=== PATIENT | female | born 1965 | race Caucasian/White ===

== ENCOUNTER 2019-02-14 13:37 | Emergency (ER) | payer MEDICAID, OTHER ==
[2019-02-14] MEDS ORDERED: Sodium Chloride 0.9% 10 ML Syringe FLUSH PRN (13:57)
[2019-02-14] MEDS: Sodium Chloride 0.9% 1,000 ML IV ONE (14:16)
[2019-02-14] MEDS: Morphine 4 MG/ML Syringe IVPUSH ONE (14:16)
[2019-02-14] MEDS: Ondansetron 4 MG/2 ML SDV IVPUSH ONE (14:21)
[2019-02-14 14:46] LABS: ANION GAP 13.6 mmol/L (10-20)
[2019-02-14] MEDS: Iopamidol 612 MG/ML 100 ML Bottle IVPUSH ONE (14:56)
--- NOTE | 2019-02-14 15:38 | CT ---
[id number] CT/CT Abdomen Pelvis W IV EXAM: CT Abdomen Pelvis W IV CLINICAL DATA: ABDOMINAL PAIN. COMPARISON STUDY: None. FINDINGS: Lung bases are clear. Liver, spleen, gallbladder, pancreas, an adrenal glands are unremarkable. Punctate right nonobstructing calculi. No urinary tract obstruction. Scattered colonic diverticula. No diverticulitis. No colitis. No small bowel obstruction or inflammation.Appendix is normal. No lymphadenopathy, free fluid, or pneumoperitoneum. Uterus and adnexa are unremarkable. Urinary bladder is also unremarkable. Posterior decompression at L5-S1. Discectomy with spacer placement L4-5 and L5-S1. Moderate to advanced spondylosis at L3-4. IMPRESSION: No acute findings in the abdomen or pelvis. Blayne Lamb MD 02/14/19 0484 Thank you for allowing us to participate in the care of your patient.
--- NOTE | 2019-02-15 09:53 | EDM.PDOC ---
ED HPI GENERAL MEDICAL PROBLEM - General Chief Complaint: Back Pain or Injury Stated Complaint: LEFT LOWER BACK PAIN Time Seen by Provider: 02/14/19 13:50 Source of Information: Reports: Patient History Limitations: Reports: No Limitations - History of Present Illness INITIAL COMMENTS - FREE TEXT/NARRATIVE: Pt. presents to ER with complaints of back and abdominal pain. Pt. has a history of chronic low back pain and states that it has gotten worse recently. She states that she is now having what appears to be referred pain into her abdomen as well, similar to muscle spasms. Unsure if this is purely a result of chronic low back pain or if this is being caused by something else. She states that the discomfort in her back radiates into her buttocks as well. She states that she had "dark stools' recently as well. She states that she utilizes NSAIDs heavily. Denies any fever or chill. No saddle anesthesia. No chest pain or shortness of breath. No blood in urine or stools. Denies any lightheadedness. Location: Reports: Abdomen, Back Left Lower Back Pain Score (Numeric/FACES): 4 - Related Data Allergies Allergy/AdvReac Type Severity Reaction Status Date / Time erythromycin base Allergy Hives Verified 02/14/19 13:59 [From Erythrocin] lisinopril Allergy Cough Verified 02/14/19 13:59 Penicillins Allergy Anaphylactic Verified 02/14/19 13:59 Shock Sulfa (Sulfonamide Allergy Rash Verified 02/14/19 13:59 Antibiotics) seafood Allergy Nausea and Uncoded 02/14/19 13:59 Vomiting Home Meds: Home Meds Acyclovir [Zovirax] 400 mg BID 02/14/19 [History] Amitriptyline [Elavil] 75 mg BEDTIME 02/14/19 [History] Ascorbic Acid [Vitamin C] 1 tab DAILY 02/14/19 [History] Cetirizine [ZyrTEC] 10 mg DAILY 02/14/19 [History] Gabapentin [Neurontin] 300 mg TID 02/14/19 [History] Multivitamin [Multi-Vitamin Daily] 1 tab DAILY 02/14/19 [History] Telmisartan 40 mg DAILY 02/14/19 [History] Triamcinolone Acetonide [Triamcinolone Acetonide 0.1% Crm] 1 applic BID [History] predniSONE [Prednisone] 10 mg DAILY 02/14/19 [History] Past Medical History Cardiovascular History: Reports: Hypertension Respiratory History: Reports: Asthma, Other (See Below) Other Respiratory History: pulmonary nodules Gastrointestinal History: Reports: Other (See Below) Other Gastrointestinal History: fatty liver disease. 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 SI joint injection Social & Family History - Tobacco Use Smoking Status *Q: Unknown Ever Smoked - Recreational Drug Use Recreational Drug Use: No ED ROS GENERAL - Review of Systems Review Of Systems: See Below Constitutional: Reports: No Symptoms HEENT: Reports: No Symptoms Respiratory: Reports: No Symptoms Cardiovascular: Reports: No Symptoms Endocrine: Reports: No Symptoms GI/Abdominal: Reports: Abdominal Pain (primarliy to the L side), Black Stool : Reports: No Symptoms Musculoskeletal: Reports: Back Pain Skin: Reports: No Symptoms Neurological: Reports: No Symptoms Psychiatric: Reports: No Symptoms Hematologic/Lymphatic: Reports: No Symptoms Immunologic: Reports: No Symptoms ED EXAM, GENERAL - Physical Exam Exam: See Below Exam Limited By: No Limitations General Appearance: Alert, WD/WN, No Apparent Distress Head: Atraumatic, Normocephalic Neck: Normal Inspection, Supple, Non-Tender, Full Range of Motion Respiratory/Chest: No Respiratory Distress, Lungs Clear, Normal Breath Sounds, No Accessory Muscle Use, Chest Non-Tender Cardiovascular: Normal Peripheral Pulses, Regular Rate, Rhythm, No Edema GI/Abdominal: Normal Bowel Sounds, Soft, No Organomegaly, No Distention, Tender (Female) Exam: Deferred Rectal (Female) Exam: Deferred Back Exam: Normal Inspection, Full Range of Motion Extremities: Normal Inspection, Normal Range of Motion, Non-Tender, No Pedal Edema, Normal Capillary Refill Neurological: Alert, Oriented, CN II-XII Intact, Normal Cognition, Normal Gait, Normal Reflexes, No Motor/Sensory Deficits Skin Exam: Warm, Dry, Intact, Normal Color, No Rash Lymphatic: No Adenopathy Course - Vital Signs Last Recorded V/S: Last Vital Signs Temp 36.6 C 02/14/19 13:37 Pulse 86 02/14/19 13:37 Resp 18 02/14/19 13:37 BP 133/74 02/14/19 13:37 Pulse Ox 98 02/14/19 13:37 - Orders/Labs/Meds Orders: Active Orders 24 hr Category Date Time Status FOLATE [REF] Stat Lab 02/14/19 15:48 Received VITAMIN B12 [REF] Stat Lab 02/14/19 14:07 Received Peripheral IV Insertion Adult [OM.PC] Routine Oth 02/14/19 13:58 Ordered Labs: Laboratory Tests 02/14/19 02/14/19 02/14/19 Range/Units 13:50 14:07 14:07 WBC 10.4 H (4.0-10.0) x10^3/uL RBC 3.35 L (4.00-5.50) x10^6/uL Hgb 9.5 L (12.0-16.0) g/dL Hct 29.9 L (33.0-47.0) % MCV 89.3 (78.0-93.0) fL MCH 28.4 (26.0-32.0) pg MCHC 31.8 L (32.0-36.0) g/dL RDW Coeff of Andrew 15.4 H (10.0-15.0) % Plt Count 277 (130-400) x10^3/uL Neut % (Auto) 46.3 L (50.0-80.0) % Lymph % (Auto) 44.7 (25.0-50.0) % [place]once % (Auto) 5.5 (2.0-11.0) % Eos % (Auto) 3.3 (0.0-4.0) % Baso % (Auto) 0.2 (0.2-1.2) % PT 9.4 L (9.6-11.4) SEC INR 0.9 L (2.0-3.5) Sodium (136-145) mmol/L Potassium (3.5-5.1) mmol/L Chloride (98-107) mmol/L Carbon Dioxide (21-32) mmol/L Anion Gap (10-20) mmol/L BUN (7-18) mg/dL Creatinine (0.55-1.02) mg/dL Est Cr Clr Drug Dosing mL/min Estimated GFR (MDRD) Glucose (74-106) mg/dL Calcium (8.5-10.1) mg/dL Corrected Calcium (8.5-10.1) mg/dL Phosphorus (2.6-4.7) mg/dL Magnesium (1.8-2.4) mg/dL Iron (50-170) ug/dL TIBC (250-450) ug/dL % Saturation (20.0-50.0) % Ferritin (8-252) ng/mL Total Bilirubin (0.2-1.0) mg/dL AST (15-37) U/L ALT (14-59) U/L Alkaline Phosphatase (46-116) U/L C-Reactive Protein (<=0.9) mg/dL Total Protein (6.4-8.2) g/dL Albumin (3.4-5.0) g/dL Globulin Albumin/Globulin Ratio Urine Color Yellow (YELLOW) Urine Appearance Clear (CLEAR) Urine pH 6.0 (5.0-8.0) Ur Specific [place] 1.015 Urine Protein Negative (NEGATIVE) mg/dL Urine Glucose (UA) Negative (NEGATIVE) mg/dL Urine Ketones Negative (NEGATIVE) mg/dL Urine Occult Blood Negative (NEGATIVE) Urine Nitrite Negative (NEGATIVE) Urine Bilirubin Negative (NEGATIVE) Urine Urobilinogen 0.2 (0.2) EU/dL Ur Leukocyte Esterase Negative (NEGATIVE) Urine RBC 0-5 (NOT SEEN) /HPF Urine WBC 0-5 (NOT SEEN) /HPF Ur Squamous Epith Cells Rare (NEGATIVE) /HPF Amorphous Sediment Rare Urine Bacteria Rare (NEGATIVE) /HPF Urine Mucus Rare H (NEGATIVE) /LPF Stool Occult Blood (NEGATIVE) 02/14/19 02/14/19 02/14/19 Range/Units 14:07 14:07 14:40 WBC (4.0-10.0) x10^3/uL RBC (4.00-5.50) x10^6/uL Hgb (12.0-16.0) g/dL Hct (33.0-47.0) % MCV (78.0-93.0) fL MCH (26.0-32.0) pg MCHC (32.0-36.0) g/dL RDW Coeff of Andrew (10.0-15.0) % Plt Count (130-400) x10^3/uL Neut % (Auto) (50.0-80.0) % Lymph % (Auto) (25.0-50.0) % [place]once % (Auto) (2.0-11.0) % Eos % (Auto) (0.0-4.0) % Baso % (Auto) (0.2-1.2) % PT (9.6-11.4) SEC INR (2.0-3.5) Sodium 143 (136-145) mmol/L Potassium 3.6 (3.5-5.1) mmol/L Chloride 104 (98-107) mmol/L Carbon Dioxide 29 (21-32) mmol/L Anion Gap 13.6 (10-20) mmol/L BUN 21 H (7-18) mg/dL Creatinine 1.0 (0.55-1.02) mg/dL Est Cr Clr Drug Dosing 59.51 mL/min Estimated GFR (MDRD) 58 Glucose 115 H (74-106) mg/dL Calcium 9.1 (8.5-10.1) mg/dL Corrected Calcium 9.66 (8.5-10.1) mg/dL Phosphorus 3.9 (2.6-4.7) mg/dL Magnesium 2.3 (1.8-2.4) mg/dL Iron 41 L (50-170) ug/dL TIBC 301 (250-450) ug/dL % Saturation 13.6 L (20.0-50.0) % Ferritin 49 (8-252) ng/mL Total Bilirubin 0.5 (0.2-1.0) mg/dL AST 35 (15-37) U/L ALT 60 H (14-59) U/L Alkaline Phosphatase 76 (46-116) U/L C-Reactive Protein 0.6 (<=0.9) mg/dL Total Protein 6.3 L (6.4-8.2) g/dL Albumin 3.3 L (3.4-5.0) g/dL Globulin 3.0 Albumin/Globulin Ratio 1.10 Urine Color (YELLOW) Urine Appearance (CLEAR) Urine pH (5.0-8.0) Ur Specific [place] Urine Protein (NEGATIVE) mg/dL Urine Glucose (UA) (NEGATIVE) mg/dL Urine Ketones (NEGATIVE) mg/dL Urine Occult Blood (NEGATIVE) Urine Nitrite (NEGATIVE) Urine Bilirubin (NEGATIVE) Urine Urobilinogen (0.2) EU/dL Ur Leukocyte Esterase (NEGATIVE) Urine RBC (NOT SEEN) /HPF Urine WBC (NOT SEEN) /HPF Ur Squamous Epith Cells (NEGATIVE) /HPF Amorphous Sediment Urine Bacteria (NEGATIVE) /HPF Urine Mucus (NEGATIVE) /LPF Stool Occult Blood Negative (NEGATIVE) Meds: Medications Discontinued Medications Generic Name Dose Route Start Last Admin Trade Name Freq PRN Reason Stop Dose Admin Sodium Chloride 1,000 mls @ 1,000 mls/hr 02/14/19 14:00 02/14/19 14:16 Normal Saline IV 02/14/19 14:59 1,000 mls/hr .BOLUS ONE Administration Iopamidol 100 ml 02/14/19 14:47 02/14/19 14:56 Isovue-300 (61%) IVPUSH 02/14/19 14:48 100 ml ONETIME ONE Administration Morphine Sulfate 4 mg 02/14/19 14:00 02/14/19 14:16 Morphine IVPUSH 02/14/19 14:01 4 mg ONETIME ONE Administration Ondansetron HCl 4 mg 02/14/19 14:00 02/14/19 14:21 Zofran IVPUSH 02/14/19 14:01 4 mg ONETIME ONE Administration Sodium Chloride 10 ml 02/14/19 13:57 Saline Flush FLUSH ASDIRECTED PRN Keep Vein Open - Radiology Interpretation Free Text/Narrative:: CT abdomen and pelvis were negative for acute pathology - Re-Assessments/Exams Free Text/Narrative Re-Assessment/Exam: Pt. was given 4mg Morphine IV. She reported almost complete resolution of her discomfort. Stool occult blood test was negative. Departure - Departure Time of Disposition: 07:05 Disposition: Home, Self-Care 01 Clinical Impression: Anemia, Acute exacerbation of chronic low back pain - Discharge Information Instructions: Acetaminophen; Hydrocodone tablets or capsules, Anemia, Chronic Back Pain Referrals: Mat Brown NP [Primary Care Provider] - Forms: ED Department Discharge Additional Instructions: [place] 5/325mg 1 every 4-6 hour as needed for pain Iron Sulfate 150mg 1 twice daily Some of your anemia tests are sent out to lab but will be available when you follow-up with Mat. - My Orders Last 24 Hours: My Active Orders 02/14/19 13:58 Peripheral IV Insertion Adult [OM.PC] Routine 02/14/19 14:07 VITAMIN B12 [REF] Stat 02/14/19 15:48 FOLATE [REF] Stat - Assessment/Plan Last 24 Hours: My Active Orders 02/14/19 13:58 Peripheral IV Insertion Adult [OM.PC] Routine 02/14/19 14:07 VITAMIN B12 [REF] Stat 02/14/19 15:48 FOLATE [REF] Stat Plan: [place] 5/325mg 1 every 4-6 hour as needed for pain Iron Sulfate 150mg 1 twice daily Some of your anemia tests are sent out to lab but will be available when you follow-up with Mat.
== END 2019-02-14 17:05 | disposition home or self-care (01) ==
LOC: VM.ED 13:37
DX: M54.5 Low back pain (principal); G89.29 Other chronic pain; I12.9 Hypertensive chronic kidney disease with stage 1 through stage 4 chronic kidney disease, or unspecified chronic kidney disease; N18.3 Chronic kidney disease, stage 3 (moderate); D63.1 Anemia in chronic kidney disease; J45.909 Unspecified asthma, uncomplicated; Z79.899 Other long term (current) drug therapy; Z88.2 Allergy status to sulfonamides; Z91.013 Allergy to seafood; Z88.0 Allergy status to penicillin; Z88.1 Allergy status to other antibiotic agents; Z88.8 Allergy status to other drugs, medicaments and biological substances
CPT/HCPCS: 36415; 74177; 80053; 81001; 82274; 82607; 82728; 82746; 83540; 83550; 83735; 84100; 85025; 85610; 86140; 96361; 96374; 96375; 99284-25; J2270; J2405; J7030; Q9967

== ENCOUNTER 2019-02-27 09:26 | Observation (INO) | payer MEDICAID ==
[2019-02-27] MEDS ORDERED: diazePAM 5 MG/ML MDV IVPUSH ONE (09:29)
[2019-02-27] MEDS ORDERED: Ketorolac 15 MG/ML SDV IVPUSH ONE (10:28)
[2019-02-27] MEDS ORDERED: Morphine 4 MG/ML Syringe IVPUSH ONE ×2 (10:28→14:12)
[2019-02-27 12:33] LABS: CHLORIDE,CL 102 mmol/L (98-107); SODIUM,NA 138 mmol/L (136-145)
[2019-02-27 12:37] LABS: ANION GAP 13.5 mmol/L (10-20)
[2019-02-27] MEDS: Acetaminophen/HYDROcodone 325-10 MG Tab PO PRN ×3 (13:18→21:37)
--- NOTE | 2019-02-27 13:18 | EDM.PDOC ---
ED HPI GENERAL MEDICAL PROBLEM - General Chief Complaint: Back Pain or Injury Stated Complaint: BACK PAIN Time Seen by Provider: 02/27/19 09:28 Source of Information: Reports: Patient History Limitations: Reports: No Limitations - History of Present Illness INITIAL COMMENTS - FREE TEXT/NARRATIVE: Pt. presents to ER with complaints of low back pain with radiation into L lower abdomen. She was seen in ER for the same symptoms on 02/14/19. At that time her workup included at abdomen and pelvis with contast which did not reveal any acute pathology. Pt. has a longstanding history of low back pain and has had a lumbar fusion. She is currently seeing pain management and has had a recent SI joint injection. Pt. states that she has been doing well recently. States that she was feeling well yesterday. When she woke up this AM she has having significant increase in back pain with radiation into her L side and into her abdomen. She was unable to get out of bed and called 911. Pt. was given dilaudid and zofran by EMS but states that this did little for the discomfort. Denies any recent trauma. No falls or lifting. Denies any fever or chills. States that she has not had any issues with incontinence, saddle anesthesia, or other signs of cauda equina. Onset: Today Onset Date: 02/27/19 Location: Reports: Back Quality: Reports: Sharp Severity: Severe Improves with: Reports: Rest Worsens with: Reports: Movement Left Flank Pain Score (Numeric/FACES): 10 - Related Data Allergies Allergy/AdvReac Type Severity Reaction Status Date / Time Penicillins Allergy Severe Anaphylactic Verified 02/27/19 12:38 Shock erythromycin base Allergy Intermediate Hives Verified 02/27/19 12:38 [From Erythrocin] Sulfa (Sulfonamide Allergy Intermediate Rash Verified 02/27/19 12:38 Antibiotics) lisinopril AdvReac Cough Verified 02/27/19 12:38 seafood AdvReac Nausea and Uncoded 02/27/19 12:38 Vomiting Home Meds: Home Meds Acyclovir [Zovirax] 400 mg PO BID 02/14/19 [History] Amitriptyline [Elavil] 75 mg PO BEDTIME 02/14/19 [History] Ascorbic Acid [Vitamin C] 1 tab PO DAILY 02/14/19 [History] Cetirizine [ZyrTEC] 10 mg PO DAILY 02/14/19 [History] Gabapentin [Neurontin] 300 mg PO TID 02/14/19 [History] Multivitamin [Multi-Vitamin Daily] 1 tab PO DAILY 02/14/19 [History] Telmisartan 40 mg PO DAILY 02/14/19 [History] Triamcinolone Acetonide [Triamcinolone Acetonide 0.1% Crm] 1 applic TOP BID [History] predniSONE [Prednisone] 10 mg PO DAILY 02/14/19 [History] Past Medical History Cardiovascular History: Reports: Hypertension Respiratory History: Reports: Asthma, Other (See Below) Other Respiratory History: pulmonary nodules Gastrointestinal History: Reports: Other (See Below) Other Gastrointestinal History: fatty liver disease. 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 SI joint injection Social & Family History - Tobacco Use Smoking Status *Q: Never Smoker ED ROS GENERAL - Review of Systems Review Of Systems: See Below Constitutional: Reports: No Symptoms HEENT: Reports: No Symptoms Respiratory: Reports: No Symptoms Cardiovascular: Reports: No Symptoms Endocrine: Reports: No Symptoms GI/Abdominal: Reports: Abdominal Pain : Reports: No Symptoms. Denies: Discharge, Dysuria Musculoskeletal: Reports: Back Pain Skin: Reports: No Symptoms Neurological: Reports: No Symptoms, Other (No paresthesia. No saddle anesthesia or incontinence.) Psychiatric: Reports: No Symptoms Hematologic/Lymphatic: Reports: No Symptoms Immunologic: Reports: No Symptoms ED EXAM, GENERAL - Physical Exam Exam: See Below Exam Limited By: No Limitations General Appearance: Alert, WD/WN, No Apparent Distress Respiratory/Chest: No Respiratory Distress, Lungs Clear, Normal Breath Sounds, No Accessory Muscle Use, Chest Non-Tender Cardiovascular: Normal Peripheral Pulses, Regular Rate, Rhythm, No Edema, No Gallop, No JVD, No Murmur Peripheral Pulses: 4+: Radial (R), Popliteal (L), Popliteal (R), Dorsalis Pedis (L), Dorsalis Pedis (R) GI/Abdominal: Normal Bowel Sounds, Soft, No Organomegaly, No Distention, Tender (pain is palliated with palpation/when pressure is placed in L side of abdomen. Muscle spasm noted to L spine and into abdomen.) (Female) Exam: Deferred Rectal (Female) Exam: Deferred Back Exam: Normal Inspection, Decreased Range of Motion, Muscle Spasm Extremities: Normal Inspection, Normal Range of Motion, Non-Tender, No Pedal Edema, Normal Capillary Refill Neurological: Alert, Oriented, CN II-XII Intact, Normal Cognition, Normal Gait, Normal Reflexes (2+), No Motor/Sensory Deficits Psychiatric: Normal Affect, Normal Mood Skin Exam: Warm, Dry, Intact, Normal Color, No Rash Lymphatic: No Adenopathy Course - Vital Signs Last Recorded V/S: Last Vital Signs Temp 36.3 C 02/27/19 15:01 Pulse 75 02/27/19 15:01 Resp 16 02/27/19 12:43 BP 156/83 H 02/27/19 15:01 Pulse Ox 96 02/27/19 15:01 - Orders/Labs/Meds Orders: Active Orders 24 hr Category Date Time Status UA W/MICROSCOPIC [URIN] Stat Lab 02/27/19 11:47 Ordered Medication Orders Hydrocodone Bitart/Acetaminophen ([place] 325-10 Mg) 1 tab PO Q4H PRN PRN Reason: Pain Last Admin: 02/27/19 13:18 Dose: 1 tab Amitriptyline HCl (Elavil) 75 mg PO BEDTIME KATERINA Cyclobenzaprine HCl (Flexeril) 10 mg PO TID KATERINA Last Admin: 02/27/19 13:28 Dose: 10 mg Gabapentin (Neurontin) 300 mg PO TID KATERINA Non-Formulary Medication (Acyclovir [Zovirax]) 400 mg PO BID KATERINA Non-Formulary Medication (Ascorbic Acid [Vitamin C]) 1 tab PO DAILY KATERINA Non-Formulary Medication (Cetirizine [Zyrtec]) 10 mg PO DAILY KATERINA Non-Formulary Medication (Multivitamin [Multi-Vitamin Daily]) 1 tab PO DAILY KATERINA Non-Formulary Medication (Telmisartan) 40 mg PO DAILY KATERINA Prednisone (Prednisone) 40 mg PO WITHBREAKFAST [facility] Meds: Medications Generic Name Dose Route Start Last Admin Trade Name Freq PRN Reason Stop Dose Admin Hydrocodone Bitart/Acetaminophen 1 tab 02/27/19 12:41 02/27/19 13:18 [place] 325-10 Mg PO 1 tab Q4H PRN Administration Pain Amitriptyline HCl 75 mg 02/27/19 20:00 Elavil PO BEDTIME KATERINA Cyclobenzaprine HCl 10 mg 02/27/19 13:30 02/27/19 13:28 Flexeril PO 10 mg TID KATERINA Administration Gabapentin 300 mg 02/27/19 20:00 Neurontin PO TID KATERINA Non-Formulary Medication 400 mg 02/27/19 20:00 Acyclovir [Zovirax] PO BID [facility] Non-Formulary Medication 1 tab 02/28/19 08:00 Ascorbic Acid [Vitamin C] PO DAILY KATERINA Non-Formulary Medication 10 mg 02/28/19 08:00 Cetirizine [Zyrtec] PO DAILY [facility] Non-Formulary Medication 1 tab 02/28/19 08:00 Multivitamin [Multi-Vitamin Daily] PO DAILY [facility] Non-Formulary Medication 40 mg 02/28/19 08:00 Telmisartan PO DAILY [facility] Prednisone 40 mg 02/28/19 08:00 Prednisone PO WITHBREAKFAST KATERINA Discontinued Medications Generic Name Dose Route Start Last Admin Trade Name Balq PRN Reason Stop Dose Admin Diazepam 5 mg 02/27/19 09:29 02/27/19 09:36 Valium IVPUSH 02/27/19 09:30 5 mg STAT ONE Administration Iopamidol 100 ml 02/27/19 14:26 Isovue-300 (61%) IVPUSH 02/27/19 14:27 ONETIME ONE Ketorolac Tromethamine 15 mg 02/27/19 10:28 02/27/19 10:40 Toradol IVPUSH 02/27/19 10:29 15 mg ONETIME ONE Administration Morphine Sulfate 4 mg 02/27/19 10:28 02/27/19 10:38 Morphine IVPUSH 02/27/19 10:29 4 mg ONETIME ONE Administration Morphine Sulfate 4 mg 02/27/19 14:12 02/27/19 14:23 Morphine IVPUSH 02/27/19 14:13 4 mg ONETIME ONE Administration - Radiology Interpretation Free Text/Narrative:: CT abdomen and pelvis was obtained and is pending Departure - Departure Time of Disposition: 15:00 Disposition: Refer to Observation Clinical Impression: Low back pain associated with a spinal disorder other than radiculopathy or spinal stenosis, Acute exacerbation of chronic low back pain - Discharge Information - Problem List Review Problem List Initiated/Reviewed/Updated: Yes - My Orders Last 24 Hours: My Active Orders 02/27/19 11:47 UA W/MICROSCOPIC [URIN] Stat - Assessment/Plan Last 24 Hours: My Active Orders 02/27/19 11:47 UA W/MICROSCOPIC [URIN] Stat Plan: Pt. was given morphine and valium in ER and reported no improvement in discomfort. She reports that the severity waxes and wanes but is constantly there. Unable to get her pain under control at this point so she will be admitted for pain control. Tramadol was stopped. She was started on [place] 10/ 325mg 1 every 4 hours as needed for pain. Flexeril for spasm. Pt. became very somnolent with parenteral opiates so at this point we will treat the discomfort with oral medication. I did speak with her sister. She is very worried about her outlook and mental health and thinks she is having a "nervous breakdown". We will have her work with PT and OT once her pain is better controlled. She needs to ambulate and should not be lying flat in bed which she has been wanting to do. She is a code 1.
[2019-02-27] MEDS: Cyclobenzaprine 10 MG Tab PO SCH ×2 (13:28→19:24)
[2019-02-27] MEDS ORDERED: Iopamidol 612 MG/ML 100 ML Bottle IVPUSH ONE (14:26)
--- NOTE | 2019-02-27 17:24 | CT ---
[id number] CT/CT Abdomen Pelvis W IV EXAM: CT Abdomen Pelvis W IV CLINICAL DATA: ABDOMINAL/BACK PAIN. COMPARISON STUDY: February 14, 2019. FINDINGS: Dependent atelectasis at the lung bases bilaterally. Generalized hypodensity liver consistent with hepatic steatosis. No suspicious hepatic lesions. The gallbladder, spleen, pancreas, and adrenal glands are unremarkable. Punctate nonobstructing right renal calculi. No hydronephrosis or hydroureter. No suspicious renal lesions. No bowel obstruction or inflammation. The appendix is visualized and appears normal. No lymphadenopathy, free fluid, or pneumoperitoneum. Scattered changes of spondylosis the spine. Postsurgical changes of the lower lumbar spine. No fracture or osseous lesion. IMPRESSION: No acute acute CT findings in the abdomen or pelvis to explain the patient's symptoms. Raphael Vallecillo DO 02/27/19 1723 Thank you for allowing us to participate in the care of your patient.
[2019-02-27] MEDS ORDERED: Morphine 4 MG/ML Syringe IVPUSH PRN (17:39)
[2019-02-27] MEDS: Gabapentin 300 MG Cap PO SCH (19:24)
[2019-02-27] MEDS: Acyclovir 200 MG Cap PO SCH (19:24)
[2019-02-27] MEDS ORDERED: Amitriptyline 25 MG Tab PO SCH (20:00)
[2019-02-28] MEDS: Acetaminophen/HYDROcodone 325-10 MG Tab PO PRN ×3 (04:11→13:08)
[2019-02-28] MEDS ORDERED: Losartan 50 MG Tab PO SCH (08:00)
[2019-02-28] MEDS ORDERED: predniSONE 20 MG Tab PO SCH (08:00)
[2019-02-28] MEDS ORDERED: Loratadine 10 MG Tab PO SCH (08:00)
[2019-02-28] MEDS ORDERED: Multivitamins with Iron/Calcium/Folic Acid/Minerals Tab PO SCH (08:00)
[2019-02-28] MEDS ORDERED: Ascorbic Acid 500 MG Tab PO SCH (08:00)
[2019-02-28] MEDS: Gabapentin 300 MG Cap PO SCH ×2 (08:55→13:08)
[2019-02-28] MEDS: Cyclobenzaprine 10 MG Tab PO SCH ×2 (08:56→13:08)
[2019-02-28] MEDS: Acyclovir 200 MG Cap PO SCH (08:56)
--- NOTE | 2019-02-28 10:26 | PCM.DCSUM1 ---
Discharge Summary - Hospital Course HPI Initial Comments: Pt. presented to ER via EMS for complaints of low back pain with radiation into L lower abdomen. She was seen in ER for the same symptoms on 02/14/19. At that time her workup included at abdomen and pelvis with contrast which did not reveal any acute pathology. Pt. has a longstanding history of low back pain and has had a lumbar fusion. She is currently seeing pain management and has had a recent SI joint injection at . Pt. states that she has been doing well recently. States that she was feeling well yesterday. When she woke up this AM she has having significant increase in back pain with radiation into her L side and into her abdomen. She was unable to get out of bed and called 911. Pt. was given dilaudid and zofran by EMS but states that this did little for the discomfort. Denies any recent trauma. No falls or lifting. Denies any fever or chills. States that she has not had any issues with incontinence, saddle anesthesia, or other signs of cauda equina. This appears to be acute on chronic exacerbation of low back pain. Diagnosis: Stroke: No Modified [place] Scale: No Symptoms at All Modified [place] Scale Score: 0 - Discharge Data Discharge Date: 02/28/19 Discharge Disposition: Home, Self-Care 01 Condition: Good - Patient Summary/Data Operative Procedure(s) Performed: None Consults: Consultations 02/27/19 13:19 Consult to Physical Therapy [PT Evaluation and Treatment] [CONS] Routine 02/27/19 13:20 OT Evaluation and Treatment [CONS] Routine Labs Pending at D/C: None Recommended Follow-up Testing/Procedures: None Planned Operative Procedure(s) after DC: None Hospital Course: Patient initially had issues with pain control, but since has gotten much better. She has not had any issue with BM's or urination. Hospital stay basically unremarkable. Patient is now at baseline. No chest pain or SOB. Tolerated diet well. No issues with medications. Ambulating independently. - Patient Instructions Diet, Other: Low Sodium and low potassium; Absolutely NO NSAIDS (Aleve, Ibuprofen, etc.) Activity: Rest and Relax Today Driving: Do Not Drive (for today) Showering/Bathing: May Shower Notify Provider of: Increased Pain - Discharge Plan *PRESCRIPTION DRUG MONITORING PROGRAM REVIEWED*: Not Applicable *COPY OF PRESCRIPTION DRUG MONITORING REPORT IN PATIENT LADONNA: Not Applicable Home Medications: Home Meds Acyclovir [Zovirax] 400 mg PO BID 02/14/19 [History] Amitriptyline [Elavil] 75 mg PO BEDTIME 02/14/19 [History] Ascorbic Acid [Vitamin C] 1 tab PO DAILY 02/14/19 [History] Cetirizine [ZyrTEC] 10 mg PO DAILY 02/14/19 [History] Gabapentin [Neurontin] 300 mg PO TID 02/14/19 [History] Multivitamin [Multi-Vitamin Daily] 1 tab PO DAILY 02/14/19 [History] Telmisartan 40 mg PO DAILY 02/14/19 [History] Triamcinolone Acetonide [Triamcinolone Acetonide 0.1% Crm] 1 applic TOP BID [History] predniSONE [Prednisone] 10 mg PO DAILY 02/14/19 [History] Oxygen Therapy Mode: Room Air Patient Handouts: Chronic Back Pain, Chronic Pain, Adult Referrals: Mat Brown NP [Primary Care Provider] - - Discharge Summary/Plan Comment DC Time >30 min.: No Discharge Summary/Plan Comment: Patient will be discharge home today. No changes with any home medication. Reminded patient no NSAIDS duet o CKD stage 3. Tylenol ok. See me in clinic in one week for hospital follow up. Will consider Physical Therapy. - General Info Date of Service: 02/28/19 Subjective Update: Patient offers no specific complaints. States back pain is much better. Patient does not require physical therapy inpatient. She is at her baseline. Denies any issues with BM's or urination. Tolerating diet OK. Ambulating independently. Denies any numbness, tingling, or paresthesia. Functional Status: Reports: Pain Controlled, Tolerating Diet, Ambulating, Urinating Numeric/FACES Score: 0 - Review of Systems General: Denies: Fever, Chills Pulmonary: Denies: Shortness of Breath, Cough Cardiovascular: Denies: Chest Pain, Palpitations Musculoskeletal: Reports: No Symptoms Skin: Reports: No Symptoms Neurological: Reports: No Symptoms - Patient Data Vitals - Most Recent: Last Vital Signs Temp 36.4 C 02/28/19 06:00 Pulse 88 02/28/19 06:00 Resp 18 02/28/19 06:00 BP 144/76 H 02/28/19 08:56 Pulse Ox 92 L 02/28/19 06:00 Weight - Most Recent: 103.192 kg I&O - Last 24 hours: Intake & Output 02/27/19 02/28/19 02/28/19 22:59 06:59 14:59 Intake Total 200 360 Output Total 700 Balance -700 200 360 Lab Results - Last 24 hrs: Laboratory Results - last 24 hr 02/27/19 02/27/19 02/27/19 Range/Units 12:05 12:05 12:05 WBC 12.5 H (4.0-10.0) x10^3/uL RBC 3.86 L (4.00-5.50) x10^6/uL Hgb 11.3 L D (12.0-16.0) g/dL Hct 34.4 (33.0-47.0) % MCV 89.1 (78.0-93.0) fL MCH 29.3 (26.0-32.0) pg MCHC 32.8 (32.0-36.0) g/dL RDW Coeff of Andrew 15.2 H (10.0-15.0) % Plt Count 349 (130-400) x10^3/uL Neut % (Auto) 80.5 H (50.0-80.0) % Lymph % (Auto) 11.4 L (25.0-50.0) % [place] % (Auto) 7.8 (2.0-11.0) % Eos % (Auto) 0.1 (0.0-4.0) % Baso % (Auto) 0.2 (0.2-1.2) % PT 9.9 L (10.0-12.8) SEC INR 0.9 L (2.0-3.5) Sodium 138 (136-145) mmol/L Potassium 4.5 (3.5-5.1) mmol/L Chloride 102 (98-107) mmol/L Carbon Dioxide 27 (21-32) mmol/L Anion Gap 13.5 (10-20) mmol/L BUN 38 H (7-18) mg/dL Creatinine 1.1 H (0.55-1.02) mg/dL Est Cr Clr Drug Dosing TNP Estimated GFR (MDRD) 52 Glucose 115 H (74-106) mg/dL Calcium 9.7 (8.5-10.1) mg/dL Corrected Calcium 10.02 (8.5-10.1) mg/dL Total Bilirubin 0.7 (0.2-1.0) mg/dL AST 20 (15-37) U/L ALT 57 (14-59) U/L Alkaline Phosphatase 80 (46-116) U/L Total Protein 7.0 (6.4-8.2) g/dL Albumin 3.6 (3.4-5.0) g/dL Globulin 3.4 Albumin/Globulin Ratio 1.06 Urine Color (YELLOW) Urine Appearance (CLEAR) Urine pH (5.0-8.0) Ur Specific [place] Urine Protein (NEGATIVE) mg/dL Urine Glucose (UA) (NEGATIVE) mg/dL Urine Ketones (NEGATIVE) mg/dL Urine Occult Blood (NEGATIVE) Urine Nitrite (NEGATIVE) Urine Bilirubin (NEGATIVE) Urine Urobilinogen (0.2) EU/dL Ur Leukocyte Esterase (NEGATIVE) Urine RBC (NOT SEEN) /HPF Urine WBC (NOT SEEN) /HPF Ur Squamous Epith Cells (NEGATIVE) /HPF Urine Bacteria (NEGATIVE) /HPF Urine Mucus (NEGATIVE) /LPF 02/27/19 Range/Units 16:50 WBC (4.0-10.0) x10^3/uL RBC (4.00-5.50) x10^6/uL Hgb (12.0-16.0) g/dL Hct (33.0-47.0) % MCV (78.0-93.0) fL MCH (26.0-32.0) pg MCHC (32.0-36.0) g/dL RDW Coeff of Andrew (10.0-15.0) % Plt Count (130-400) x10^3/uL Neut % (Auto) (50.0-80.0) % Lymph % (Auto) (25.0-50.0) % [place] % (Auto) (2.0-11.0) % Eos % (Auto) (0.0-4.0) % Baso % (Auto) (0.2-1.2) % PT (10.0-12.8) SEC INR (2.0-3.5) Sodium (136-145) mmol/L Potassium (3.5-5.1) mmol/L Chloride (98-107) mmol/L Carbon Dioxide (21-32) mmol/L Anion Gap (10-20) mmol/L BUN (7-18) mg/dL Creatinine (0.55-1.02) mg/dL Est Cr Clr Drug Dosing Estimated GFR (MDRD) Glucose (74-106) mg/dL Calcium (8.5-10.1) mg/dL Corrected Calcium (8.5-10.1) mg/dL Total Bilirubin (0.2-1.0) mg/dL AST (15-37) U/L ALT (14-59) U/L Alkaline Phosphatase (46-116) U/L Total Protein (6.4-8.2) g/dL Albumin (3.4-5.0) g/dL Globulin Albumin/Globulin Ratio Urine Color Yellow (YELLOW) Urine Appearance Clear (CLEAR) Urine pH 6.0 (5.0-8.0) Ur Specific [place] 1.020 Urine Protein Negative (NEGATIVE) mg/dL Urine Glucose (UA) Negative (NEGATIVE) mg/dL Urine Ketones Negative (NEGATIVE) mg/dL Urine Occult Blood Negative (NEGATIVE) Urine Nitrite Negative (NEGATIVE) Urine Bilirubin Negative (NEGATIVE) Urine Urobilinogen 0.2 (0.2) EU/dL Ur Leukocyte Esterase Negative (NEGATIVE) Urine RBC 0-5 (NOT SEEN) /HPF Urine WBC 0-5 (NOT SEEN) /HPF Ur Squamous Epith Cells Rare (NEGATIVE) /HPF Urine Bacteria Not seen (NEGATIVE) /HPF Urine Mucus Few H (NEGATIVE) /LPF Med Orders - Current: Current Medications Hydrocodone Bitart/Acetaminophen ([place] 325-10 Mg) 1 tab PO Q4H PRN PRN Reason: Pain Last Admin: 02/28/19 08:57 Dose: 1 tab Acyclovir (Zovirax) 400 mg PO BID COUNTS INCLUDE 234 BEDS AT THE [facility] Last Admin: 02/28/19 08:56 Dose: 400 mg Amitriptyline HCl (Elavil) 75 mg PO BEDTIME COUNTS INCLUDE 234 BEDS AT THE [facility] Last Admin: 02/27/19 19:25 Dose: 75 mg Ascorbic Acid (Vitamin C) 500 mg PO DAILY COUNTS INCLUDE 234 BEDS AT THE [facility] Last Admin: 02/28/19 08:55 Dose: 500 mg Cyclobenzaprine HCl (Flexeril) 10 mg PO TID COUNTS INCLUDE 234 BEDS AT THE [facility] Last Admin: 02/28/19 08:56 Dose: 10 mg Gabapentin (Neurontin) 300 mg PO TID COUNTS INCLUDE 234 BEDS AT THE [facility] Last Admin: 02/28/19 08:55 Dose: 300 mg Loratadine (Claritin) 10 mg PO DAILY COUNTS INCLUDE 234 BEDS AT THE [facility] Last Admin: 02/28/19 08:56 Dose: 10 mg Losartan Potassium (Cozaar) 50 mg PO DAILY COUNTS INCLUDE 234 BEDS AT THE [facility] Last Admin: 02/28/19 08:56 Dose: 50 mg Morphine Sulfate (Morphine) 4 mg IVPUSH Q6H PRN PRN Reason: severe pain Last Admin: 02/28/19 05:13 Dose: 4 mg Multivitamins/Minerals (Thera M Plus) 1 tab PO DAILY COUNTS INCLUDE 234 BEDS AT THE [facility] Last Admin: 02/28/19 08:56 Dose: 1 tab Prednisone (Prednisone) 40 mg PO WITHBREAKFAST COUNTS INCLUDE 234 BEDS AT THE [facility] Last Admin: 02/28/19 08:56 Dose: 40 mg Discontinued Medications Diazepam (Valium) 5 mg IVPUSH STAT ONE Stop: 02/27/19 09:30 Last Admin: 02/27/19 09:36 Dose: 5 mg Iopamidol (Isovue-300 (61%)) 100 ml IVPUSH ONETIME ONE Stop: 02/27/19 14:27 Last Admin: 02/27/19 16:54 Dose: 100 ml Ketorolac Tromethamine (Toradol) 15 mg IVPUSH ONETIME ONE Stop: 02/27/19 10:29 Last Admin: 02/27/19 10:40 Dose: 15 mg Morphine Sulfate (Morphine) 4 mg IVPUSH ONETIME ONE Stop: 02/27/19 10:29 Last Admin: 02/27/19 10:38 Dose: 4 mg Morphine Sulfate (Morphine) 4 mg IVPUSH ONETIME ONE Stop: 02/27/19 14:13 Last Admin: 02/27/19 14:23 Dose: 4 mg - Exam Quality Assessment: Denies: Skin Breakdown General: Reports: Alert, Oriented, Cooperative, No Acute Distress Lungs: Reports: Clear to Auscultation, Normal Respiratory Effort Cardiovascular: Reports: Regular Rate, Regular Rhythm Back Exam: Reports: Normal Inspection, Paraspinal Tenderness (very mild, tolerable) Skin: Reports: Warm, Dry, Intact Neurological: Reports: No New Focal Deficit
== END 2019-02-28 13:50 | disposition home or self-care (01) ==
LOC: VM.ED 09:26 → VM.MS 11:50
PROVIDERS: ADMIT Physician Assistant; ATTEND Physician Assistant
DX: G89.29 Other chronic pain (principal); M54.5 Low back pain; R10.30 Lower abdominal pain, unspecified; I12.9 Hypertensive chronic kidney disease with stage 1 through stage 4 chronic kidney disease, or unspecified chronic kidney disease; N18.3 Chronic kidney disease, stage 3 (moderate); J45.909 Unspecified asthma, uncomplicated; Z88.0 Allergy status to penicillin; Z88.1 Allergy status to other antibiotic agents; Z88.2 Allergy status to sulfonamides; Z88.8 Allergy status to other drugs, medicaments and biological substances; Z91.013 Allergy to seafood; Z98.1 Arthrodesis status; Z79.52 Long term (current) use of systemic steroids; Z79.899 Other long term (current) drug therapy
CPT/HCPCS: 36415; 74177; 80053; 81001; 85025; 85610; 96374; 96375; 96376; 97162; 97165; 99284; A9270; G0378; J1885; J2270; J3360; Q9967

== ENCOUNTER 2023-01-31 16:36 | Emergency (ER) | payer MEDICARE ==
[2023-01-31] MEDS ORDERED: Ketorolac 30 MG/ML SDV IM ONE (17:42)
[2023-01-31] MEDS ORDERED: Acetaminophen/oxyCODONE 325-5 MG Tab PO ONE (19:49)
[2023-01-31] MEDS ORDERED: Take Home: Acetaminophen/oxyCODONE 325-5 MG, 5 Tab Pack PO ONE (20:15)
== END 2023-01-31 20:20 | disposition home or self-care (01) ==
LOC: VM.ED 16:36
DX: S82.041A Displaced comminuted fracture of right patella, initial encounter for closed fracture (principal); S82.145A Nondisplaced bicondylar fracture of left tibia, initial encounter for closed fracture; I12.9 Hypertensive chronic kidney disease with stage 1 through stage 4 chronic kidney disease, or unspecified chronic kidney disease; N18.30 Chronic kidney disease, stage 3 unspecified; J45.909 Unspecified asthma, uncomplicated; E66.9 Obesity, unspecified; Z88.0 Allergy status to penicillin; Z88.1 Allergy status to other antibiotic agents; Z88.2 Allergy status to sulfonamides; Z88.8 Allergy status to other drugs, medicaments and biological substances; Z91.013 Allergy to seafood; Z91.048 Other nonmedicinal substance allergy status; Z79.899 Other long term (current) drug therapy; W00.0XXA Fall on same level due to ice and snow, initial encounter
CPT/HCPCS: 73562-LT; 73562-RT; 73700-LT; 73700-RT; 96372; 99284; A9270-GY; J1885

== ENCOUNTER 2023-08-02 17:22 | Emergency (ER) | payer MEDICARE ==
[2023-08-02] MEDS ORDERED: Sodium Chloride 0.9% 10 ML Syringe FLUSH PRN (19:02)
[2023-08-02] MEDS: Meclizine 25 MG Tab PO ONE (19:11)
[2023-08-02] MEDS: Ondansetron 4 MG/2 ML SDV IVPUSH ONE (19:11)
[2023-08-02] MEDS: LORazepam 1 MG Tab PO ONE (19:11)
[2023-08-02] MEDS: Lactated Ringers 1,000 ML IV ONE (19:22)
[2023-08-02 19:25] LABS: BASOPHILS PERCENT AUTO 0.6 % (0.2-1.2); EOSINOPHILS ABSOLUTE AUTO 0.2 x10^3/uL (0.0-0.5); EOSINOPHILS PERCENT AUTO 3.6 % (0.0-4.0); HEMATOCRIT 43.3 % (33.0-47.0); HEMOGLOBIN 14.7 g/dL (12.0-16.0); IMMATURE GRAN ABSOLUTE AUTO 0.01 x10^3/uL (0.00-0.07); LYMPHOCYTES PERCENT AUTO 40.4 % (25.0-50.0); MEAN CORPUSCULAR HEMOGLOBIN 29.5 pg (26.0-32.0); MEAN CORPUSCULAR HGB CONC 33.9 g/dL (32.0-36.0); MEAN CORPUSCULAR VOLUME 86.9 fL (78.0-93.0); MONOCYTES ABSOLUTE AUTO 0.4 x10^3/uL (0.0-0.8); MONOCYTES PERCENT AUTO 8.5 % (2.0-11.0); NEUTROPHILS ABSOLUTE AUTO 2.3 x10^3/uL (1.8-7.7); NEUTROPHILS PERCENT AUTO 46.7 % (50.0-80.0); PLATELET COUNT,PLT 222 x10^3/uL (130-400); RED BLOOD CELL COUNT 4.98 x10^6/uL (4.00-5.50)
[2023-08-02 19:39] LABS: PROTHROMBIN TIME 10.4 SEC (9.5-12.2)
[2023-08-02 19:41] LABS: ALANINE AMINOTRANSFERASE,ALT 59 U/L (14-59); ALBUMIN 3.7 g/dL (3.4-5.0); ALKALINE PHOSPHATASE 100 U/L (46-116); ASPARTATE AMNIOTRANSFERASE,AST 30 U/L (15-37); BILIRUBIN TOTAL 0.5 mg/dL (0.2-1.0); BLOOD UREA NITROGEN,BUN 13 mg/dL (7-18); CALCIUM 9.4 mg/dL (8.5-10.1); CARBON DIOXIDE,CO2 33 mmol/L (21-32); CHLORIDE,CL 103 mmol/L (98-107); CREATININE 1.2 mg/dL (0.55-1.02); GLUCOSE RANDOM 103 mg/dL (70-99); POTASSIUM,K 4.3 mmol/L (3.5-5.1); PROTEIN TOTAL,TP 7.8 g/dL (6.4-8.2); SODIUM,NA 143 mmol/L (136-145)
[2023-08-02 19:46] LABS: ANION GAP 11.3 mmol/L (5-15); ESTIMATED GFR 52 mL/min (>=60)
[2023-08-02] MEDS: Take Home: LORazepam 0.5 MG Tab, 2 Tab Pack PO ONE (20:08)
== END 2023-08-02 20:11 | disposition home or self-care (01) ==
LOC: VM.ED 17:22
DX: R42 Dizziness and giddiness (principal); I12.9 Hypertensive chronic kidney disease with stage 1 through stage 4 chronic kidney disease, or unspecified chronic kidney disease; N18.30 Chronic kidney disease, stage 3 unspecified; J45.909 Unspecified asthma, uncomplicated; E66.9 Obesity, unspecified; Z68.30 Body mass index [BMI] 30.0-30.9, adult; Z88.0 Allergy status to penicillin; Z88.1 Allergy status to other antibiotic agents; Z91.048 Other nonmedicinal substance allergy status; Z88.8 Allergy status to other drugs, medicaments and biological substances; Z91.013 Allergy to seafood
CPT/HCPCS: 80053; 83735; 85025; 85610; 85730; 96361; 96374; 99284; A9270; J2405; J7120

== ENCOUNTER 2024-10-04 16:40 | Emergency (ER) | payer MEDICARE ==
[2024-10-04] MEDS: Polymyxin B/Trimethoprim 10 ML Bottle EYELF ONE (17:26)
== END 2024-10-04 17:36 | disposition home or self-care (01) ==
LOC: VM.ED 16:40
DX: H01.001 Unspecified blepharitis right upper eyelid (principal); I10 Essential (primary) hypertension; J45.909 Unspecified asthma, uncomplicated; E66.9 Obesity, unspecified; Z88.0 Allergy status to penicillin; Z88.1 Allergy status to other antibiotic agents; Z88.2 Allergy status to sulfonamides; Z91.013 Allergy to seafood; Z91.048 Other nonmedicinal substance allergy status; Z79.51 Long term (current) use of inhaled steroids; Z79.891 Long term (current) use of opiate analgesic; Z79.899 Other long term (current) drug therapy; Z68.38 Body mass index [BMI] 38.0-38.9, adult
CPT/HCPCS: 99283; A9270-GY

== ENCOUNTER 2025-02-23 16:33 | Emergency (ER) | payer MEDICARE ==
[2025-02-23] MEDS: Doxycycline Monohydrate 100 MG Cap PO ONE (17:04)
== END 2025-02-23 17:09 | disposition home or self-care (01) ==
LOC: VM.ED 16:33
DX: S01.551A Open bite of lip, initial encounter (principal); I10 Essential (primary) hypertension; E66.9 Obesity, unspecified; Z79.899 Other long term (current) drug therapy; Z79.2 Long term (current) use of antibiotics; Z88.5 Allergy status to narcotic agent; Z91.013 Allergy to seafood; Z88.8 Allergy status to other drugs, medicaments and biological substances; Z88.6 Allergy status to analgesic agent; Z88.1 Allergy status to other antibiotic agents; Z88.0 Allergy status to penicillin; Z88.2 Allergy status to sulfonamides; Z91.048 Other nonmedicinal substance allergy status; Z68.39 Body mass index [BMI] 39.0-39.9, adult; W55.01XA Bitten by cat, initial encounter
CPT/HCPCS: 99283; A9270-GY